=== PATIENT | female | born 2000 | race Caucasian/White ===

== ENCOUNTER → 2023-03-08 15:03 | Outpatient (REF) | payer SELFPAY ==
--- NOTE | 2023-03-08 15:09 | CA_ITS ---
Transthoracic Echocardiogram Patient (Last, First, Middle): Gerri Dickey, Gender: Female Date of : 2000 Age: 23 Procedure Date: 03/08/2023 Procedure Type: Transthoracic Echocardiogram Location: OP Height: 165.1 cm Weight: 54.43 kg BSA: 1.59 m2 Heart Rate: bpm BP: 132 / 80 mmHg Spinner Hand: SB Referring MD: Feliberto Apodaca MD Parts Driver: Mariusz Betancourt MD Symptoms: TACHYCARDIA R00.0 Study Quality: Technically Difficult but adequate/narrow ribs ECG Rhythm: Sinus Conclusions: - Essentially normal study Findings Left Ventricle Normal left ventricular size, thickness, and systolic function. The visually estimated ejection fraction is between 60-65%. Spectral Doppler is indicative of a normal filling pattern. Right Ventricle Normal right ventricular cavity size and systolic function. Atria Both atria are normal in size. Interatrial shunt cannot be excluded. Aortic Valve The aortic valve structure and function is likely normal. There is no aortic valve stenosis. There is no aortic valve regurgitation. Mitral Valve Normal mitral valve structure and function. There is trace mitral valve regurgitation. There is no mitral valve stenosis. Pulmonic Valve The pulmonic valve is likely normal. There is trace pulmonic valve regurgitation. Tricuspid Valve Normal tricuspid valve structure. Tricuspid regurgitation envelope is inadequate for calculation of right ventricular systolic pressure. Normal right atrial pressure. Great Vessels All visible segments of the aorta are normal in size. The pulmonary artery was not well visualized. Venous The inferior vena cava is normal in size and collapses greater than 50% with inspiration. Pericardium/Pleural There is no evidence of pericardial effusion. Prior Study Comparison No prior study available for comparison. Measurements 2D Linear Measurements IVSd: 0.63 0.6-0.9/0.6-1.0 cm LVIDd: 4.66 3.9-5.3/4.2-5.9 cm LVIDd Index: 2.93 2.4-3.2/2.2-3.1 cm/m2 LVIDs: 3.33 2.0-3.6 cm LVPWd: 0.60 0.7-1.1 cm LA Diam: 2.50 2.7-3.8/3.0-4.0 cm LAIDs Index: 1.57 1.5-2.3 cm/m2 LV Mass: 107.59 67-162/88-224 g LV Mass Index: 67.67 43-95/49-115 g/m2 LVOT Diam: 1.90 3.0+(-)1.3 cm 2D Systolic Function EF 2C: 64.40 >55% Mitral Valve MV Pk E: 0.75 MV PK A: 0.39 MV Decel Time: 152.00 E/A: 1.90 E'Lateral: 17.30 E'Medial: 9.25 E/E' Med: 8.20 E/E' Lat: 4.40 PHT: 45.00 MVA PHT: 4.89 Decel Hamlin: 4.95 Aortic Valve AoV Pk Sixto: 1.15 AoV Pk Grad: 5.00 IRA: 2.32 LVOT LVOT Pk Sixto: 0.97 LVOT Mn Sixto: 0.62 LVOT VTI: 0.18 LVOT Pk Grad: 4.00 LVOT Mn Grad: 2.00 LVOT Diam: 1.90 LVOT Area: 2.84 Diastolic Function MV Pk E: 0.75 MV Pk A: 0.39 E/A: 1.90 E'Medial: 9.25 E/E' Med: 8.20 E' Laterial: 17.30 E/E' Lat: 4.40 Right Ventricle TAPSE (mm): 15.70 TVS' Sixto: 12.50 Tricuspid Valve TR Pk Sixto: 1.94 TR Pk Grad: 15.00 RA Press: 3.00 Great Vessels Aorta Sinus of Valsalva: 2.50 2.0-3.5 cm Ao Asc: 2.30 2.1-3.4 cm Ao Arch: 2.00 Ao Desc: 1.20 Pulmonary Valve PV Pk Sixto: 1.07 Peak PV Grad: 5.00 Updated in Other Vendor System with Status of Final Mariusz Betancourt MD electronically signed on 03/08/2023 6:23:15 PM with status of Final
== END ==
LOC: HO.CARD 15:03
PROVIDERS: Visit Provider Emergency Medicine
DX: R00.0 Tachycardia, unspecified (principal)
CPT/HCPCS: 93306

== ENCOUNTER → 2023-03-08 15:09 | Outpatient (BNV) | payer SELFPAY | PROVIDERS: Visit Provider Internal Medicine Cardiovascular Disease | DX: R00.0 Tachycardia, unspecified (principal) | CPT/HCPCS: 93306 ==

== ENCOUNTER 2024-03-05 09:34 | Outpatient (REF) | payer OTHER, SELFPAY ==
--- NOTE | ~2024-03-05 | US_ITS ---
EXAMINATION: ULTRASOUND PELVIC, COMPLETE CLINICAL INFORMATION: . COMPARISON: None. TECHNIQUE: Transabdominal imaging. Spectral Doppler and color Doppler exam was utilized. LMP: Uncertain FINDINGS: UTERUS: There is a single intrauterine gestation. Hor[place]-rump length 1.9 cm. Gestational age by this measurement is 8 weeks 4 days. RAVI October 11, 2024. heart rate 183 bpm. Yolk sac is present. ADNEXA: Ovarian vascularity:Doppler demonstrates both arterial and venous vascular flow in the right and left ovary. No evidence of ovarian torsion. Right Ovary: 3.1 x 1.9 x 1.8 cm Left Ovary: 2.6 x 2.1 x 1.6 cm Cul-de-sac: No Fluid US/US OB pelvic and transvaginal IMPRESSION: Single intrauterine gestation. Gestational age by this ultrasound 8 weeks 4 days. Electronically signed by: Gal Cummins MD 03/05/2024 05:56 PM EST
== END 2024-03-05 09:35 | disposition home or self-care (01) ==
LOC: HO.UMASIMG 09:34
PROVIDERS: Visit Provider Family Medicine
DX: Z33.2 Encounter for elective termination of pregnancy (principal); Z34.91 Encounter for supervision of normal pregnancy, unspecified, first trimester; Z3A.08 8 weeks gestation of pregnancy
CPT/HCPCS: 76801; 76817